=== PATIENT | female | born 1990 | race Caucasian/White ===

== ENCOUNTER → 2021-03-26 13:02 | Outpatient (CLI) | payer OTHER, SELFPAY ==
--- NOTE | ~2021-03-26 | US_ITS ---
EXAMINATION: US transvaginal DATE: 03/26/2021 13:32 INDICATION: Pelvic pain Comparison:Ultrasound dated 02/19/2019 TECHNIQUE: Multiple transabdominal and endovaginal sonographic images of the pelvis performed. FINDINGS: The uterus measures 7.4 x 4.6 x 4.6 cm. Uterus is retroverted The endometrial complex measu res 8 mm. The right ovary measures 3.9 x 2.7 x 2.1 cm and the left ovary measures 2.9 x 1.5 x 1.5 cm. There ar e small follicles in each ovary. Normal doppler signal in both ovaries. There is free fluid in the pelvis. There are no abnormal masses seen on either side. IMPRESSION: 1. Unremarkable pelvic ultrasound. Reviewed, dictated and finalized at location A.
== END ==
PROVIDERS: Visit Provider Nurse Practitioner
DX: R10.2 Pelvic and perineal pain (principal)
CPT/HCPCS: 76830

== ENCOUNTER 2024-03-05 10:51 | Outpatient (CLI) | payer OTHER, SELFPAY ==
--- NOTE | ~2024-03-05 | US_ITS ---
EXAMINATION: US pelvic complete w TV DATE: 03/05/2024 11:21 INDICATION: Pelvic pain TECHNIQUE: Multiple transabdominal and endovaginal sonographic images of the pelvis were obtained. COMPARISON: 03/26/2021 FINDINGS: The uterus measures 7.6 x 4.8 x 5.1 cm. The endometrial complex measures 12 mm in thickness. The rig ht ovary measures 3.8 x 3.1 x 2.9 cm. The left ovary measures 2.6 x 1.3 x 1.3 cm. There are a few sma ll bilateral anechoic ovarian cysts/follicles the largest on the right measuring 1.6 cm. Vascular amber w is identified in both ovaries on color Doppler. There is small amount of likely physiologic free fl uid in the pelvis. IMPRESSION: 1. Unremarkable pelvic ultrasound with a few bilateral small ovarian cysts/follicles and small amount of likely physiologic free fluid in the pelvis. Reviewed, dictated and finalized at location A. IMPRESSION: 1. Unremarkable pelvic ultrasound with a few bilateral small ovarian cysts/foll icles and small amount of likely physiologic free fluid in the pelvis.
== END 2024-03-05 10:52 ==
LOC: GOSHIMG 10:52
PROVIDERS: PCP Nurse Practitioner; Visit Provider Nurse Practitioner
DX: N83.202 Unspecified ovarian cyst, left side (principal); N83.201 Unspecified ovarian cyst, right side
CPT/HCPCS: 76830; 76856

== ENCOUNTER 2024-05-23 14:17 | Outpatient (CLI) | payer OTHER, SELFPAY ==
--- NOTE | ~2024-05-23 | US_ITS ---
US transvaginal Ordering provider: Chio Carr CNM History: . Abn uterine bleeding,pelvic pain . Comparison: None. Technique: Transabdominal and endovaginal ultrasound of the pelvis (Doppler ultrasound interrogation techniques used as needed for this exam.) FINDINGS: CERVIX: Normal. UTERUS: Measures 9x 4.6x 5.3 cm in length which is within normal limits and is anteverted. No myomet rial masses. ENDOMETRIUM: Slightly thickened wall of about 12 mm.. CUL DE SAC: No free fluid. RIGHT OVARY: Normal in size measuring 2.6x 1.7x 2.9 centimeters. Normal echotexture. Doppler vascular flow present. Follicle is noted measuring 1.6 cm.. LEFT OVARY: Normal in size measuring 2x 1.4x 1.7 cm. Normal echotexture. Doppler vascular flow presen t. ADNEXA: Normal. No mass. IMPRESSION: Thickened endometrium. Correlation with the menstrual stage is advised. right ovarian follicle. Other gentile, normal pelvic ultrasound. Reviewed, dictated and finalized at location A. IMPRESSION: Thickened endometrium. Correlation with the menstrual stage is advised. right o varian follicle. Otherwise, normal pelvic ultrasound.
== END 2024-05-23 14:18 ==
PROVIDERS: PCP Advanced Practice Midwife; Visit Provider Advanced Practice Midwife
DX: N93.8 Other specified abnormal uterine and vaginal bleeding (principal); R10.2 Pelvic and perineal pain; N85.9 Noninflammatory disorder of uterus, unspecified
CPT/HCPCS: 76830